=== PATIENT | male | born 1995 | race Two or more races ===

== ENCOUNTER 2018-07-03 20:51 | Emergency (ER) | payer SELFPAY ==
[2018-07-03] MEDS ORDERED: Cephalexin 500 MG CAP ONE (22:05)
[2018-07-03] MEDS ORDERED: Sulfameth/Trimethoprim DS 800-160mg TAB ONE (22:05)
== END 2018-07-03 22:15 | disposition home or self-care (01) ==
LOC: MADERS 20:51
DX: L03.317 Cellulitis of buttock (principal); F17.210 Nicotine dependence, cigarettes, uncomplicated
CPT/HCPCS: 99282

== ENCOUNTER 2018-11-11 11:25 | Emergency (ER) | payer SELFPAY | END 2018-11-11 11:55 | disposition home or self-care (01) | LOC: MADERS 11:25 | DX: K02.9 Dental caries, unspecified (principal); F17.210 Nicotine dependence, cigarettes, uncomplicated | CPT/HCPCS: 99281 ==